=== PATIENT | male | born 1960 | race Caucasian/White ===

== ENCOUNTER 2018-06-29 13:57 | Inpatient (IN) | payer MEDICAID ==
[~2018-06-29] VITALS: Ht 175.3 cm; Wt 89.4 kg
[2018-06-29 15:04] LABS: Hemoglobin 12.1 g/dL (13.5-17.5); Monocytes # (auto) 0.7 uL; Neutrophils # (auto) 7.6 uL; White Blood Cell 9.5 10^3/uL (4.4-10.8)
[2018-06-29 15:06] LABS: Basophils # (auto) 0 uL; Basophils % (auto) 0.4 % (0.0-2.0); Eosinophils # (auto) 0.1 uL; Eosinophils % (auto) 1.5 % (0.0-7.0); Hematocrit 37.9 % (41.0-53.0); Lymphocytes % (auto) 10.6 % (10.0-50.0); Mean Corpuscular Hemoglobin 23.4 pg (28.0-32.0); Mean Corpuscular Hgb Conc. 31.8 g/dL (32.0-36.0); Mean Corpuscular Volume 73.4 fL (80.0-100.0); Monocytes % (auto) 7.6 % (0.0-12.0); Neutrophils % (auto) 79.9 % (37.0-80.0); Platelet Count (auto) 286 10^3/uL (140-450); Red Blood Cells 5.17 10^6/uL (4.5-5.90); Red Cell Distribution Width 18.3 % (11.8-14.3)
[2018-06-29 15:18] LABS: Albumin 2.9 g/dL (3.4-5.0); BUN/Creatinine Ratio 11.5; Calcium 8.3 mg/dL (8.5-10.1); Potassium 3.7 mmol/L (3.5-5.1)
[2018-06-29 15:19] LABS: Bilirubin, Total 0.4 mg/dL (0.2-1.0); Total Protein 7.8 g/dL (6.4-8.2)
[2018-06-29] MEDS ORDERED: FUROSEMIDE 20 MG/2 ML VIAL IV ONE ×2 (18:45→19:00)
[2018-06-29] MEDS ORDERED: HYDROcodone-ACET 10/325MG TAB PO ONE (19:00)
[2018-06-29] MEDS ORDERED: NALBUPHINE HCL 10 MG/1ml INJECTION IV ONE (20:30)
[2018-06-29] MEDS ORDERED: methylPREDNISolone SOD SUCC 125 MG/2 ML VL ONE (20:36)
[2018-06-29] MEDS ORDERED: FAMOTIDINE (10MG/ML) 2ML VL IV ONE (20:36)
[2018-06-29] MEDS ORDERED: diphenhdrAMINE HCL 25 MG CAP PO ONE (20:39)
[2018-06-29] MEDS ORDERED: IODIXANOL 320MG/ML 100ML BTL IV ONE (22:44)
[2018-06-29] MEDS ORDERED: ONDANSETRON HCL 4 MG/2 ML VIAL IV PRN (22:45)
[2018-06-29] MEDS ORDERED: HYDROcodone-ACET 5/325MG TAB PO PRN (22:45)
[2018-06-29] MEDS ORDERED: ACETAMINOPHEN 500 MG TAB PO PRN (22:45)
[2018-06-30] MEDS ORDERED: MEPERIDINE HCL (25 MG/ML) 1ML VIAL IM PRN (01:30)
[2018-06-30] MEDS ORDERED: GABA100C9 PO (02:00)
[2018-06-30] MEDS ORDERED: TAMS1CAP25 PO (02:00)
[2018-06-30 02:15] VITALS: BP 146/98
[2018-06-30] MEDS ORDERED: traMADol HCL 50 MG TAB PO PRN (02:15)
[2018-06-30] MEDS: MEPERIDINE HCL (25 MG/ML) 1ML VIAL IV PRN ×5 (02:37→20:23)
[2018-06-30 05:00] VITALS: BP 120/70
[2018-06-30 06:16] LABS: Basophils # (auto) 0 uL; Eosinophils # (auto) 0 uL; Hematocrit 42.3 % (41.0-53.0); Hemoglobin 12.9 g/dL (13.5-17.5); Lymphocytes # (auto) 0.4 uL; Lymphocytes % (auto) 5.9 % (10.0-50.0); Mean Corpuscular Hemoglobin 23.5 pg (28.0-32.0); Mean Corpuscular Hgb Conc. 30.5 g/dL (32.0-36.0); Mean Corpuscular Volume 77.1 fL (80.0-100.0); Monocytes # (auto) 0.1 uL; Monocytes % (auto) 1.1 % (0.0-12.0); Neutrophils # (auto) 6.3 uL; Nucleated Red Blood Cells % 0.5 %; Platelet Count (auto) 257 10^3/uL (140-450); Red Blood Cells 5.49 10^6/uL (4.5-5.90); Red Cell Distribution Width 18.9 % (11.8-14.3); White Blood Cell 6.7 10^3/uL (4.4-10.8)
[2018-06-30 07:33] LABS: Anion Gap 7 (5-15); BUN/Creatinine Ratio 12.2; Blood Urea Nitrogen 19 mg/dL (7-18); Calcium 8.3 mg/dL (8.5-10.1); Carbon Dioxide 25 mmol/L (21-32); Chloride 106 mmol/L (98-107); GFR African American 59 mL/min; GFR Non-African American 49 mL/min; Glucose 125 mg/dL (74-106); Potassium 3.6 mmol/L (3.5-5.1); Sodium 138 mmol/L (136-145)
[2018-06-30 09:00] VITALS: BP 135/74
[2018-06-30] MEDS ORDERED: cefTRIAXone 1GM/50ML D5W 50 ML IV ONE (11:30)
[2018-06-30] MEDS: ASPirin-EC 81 mg tab PO SCH (11:57)
[2018-06-30] MEDS: FUROSEMIDE 40 MG/4 ML VIAL IV SCH (11:58)
[2018-06-30] MEDS: Ensure Enlive Strawberry 8oz Bottle PO SCH ×2 (11:58→18:00)
[2018-06-30 13:00] VITALS: BP 123/77
[2018-06-30] MEDS: CLINDAMYCIN 300MG IV 50 ML IV SCH ×2 (14:12→21:39)
[2018-06-30] MEDS: TAMSULOSIN HYDROCHLORIDE 0.4 MG CAP PO SCH (18:00)
[2018-06-30 18:13] VITALS: BP 113/80
[2018-06-30 22:00] VITALS: BP 101/56
[2018-07-01] MEDS: MEPERIDINE HCL (25 MG/ML) 1ML VIAL IV PRN ×4 (01:52→20:01)
[2018-07-01 05:00] VITALS: BP 114/74
[2018-07-01] MEDS: CLINDAMYCIN 300MG IV 50 ML IV SCH ×3 (05:31→21:34)
[2018-07-01 07:42] LABS: Potassium 3.6 mmol/L (3.5-5.1)
[2018-07-01 07:49] LABS: Albumin 2.5 g/dL (3.4-5.0); BUN/Creatinine Ratio 16.1; Bilirubin, Total 0.4 mg/dL (0.2-1.0); Calcium 8.2 mg/dL (8.5-10.1); Total Protein 7.2 g/dL (6.4-8.2)
[2018-07-01 08:00] VITALS: BP 126/84
[2018-07-01] MEDS: Ensure Enlive Strawberry 8oz Bottle PO SCH ×3 (08:00→17:36)
[2018-07-01 08:51] VITALS: BP 126/84
[2018-07-01 08:58] LABS: Basophils # (auto) 0 uL; Basophils % (auto) 0.3 % (0.0-2.0); Eosinophils # (auto) 0 uL; Eosinophils % (auto) 0.3 % (0.0-7.0); Hemoglobin 11.6 g/dL (13.5-17.5); Monocytes # (auto) 0.6 uL
[2018-07-01 09:00] LABS: Hematocrit 36.4 % (41.0-53.0); Lymphocytes % (auto) 12.1 % (10.0-50.0); Mean Corpuscular Hemoglobin 23.5 pg (28.0-32.0); Mean Corpuscular Hgb Conc. 31.7 g/dL (32.0-36.0); Monocytes % (auto) 7.1 % (0.0-12.0); Neutrophils # (auto) 6.8 uL; Neutrophils % (auto) 80.2 % (37.0-80.0); Platelet Count (auto) 273 10^3/uL (140-450); Red Blood Cells 4.92 10^6/uL (4.5-5.90); Red Cell Distribution Width 18.4 % (11.8-14.3); White Blood Cell 8.4 10^3/uL (4.4-10.8)
[2018-07-01] MEDS: FUROSEMIDE 40 MG/4 ML VIAL IV SCH (09:54)
[2018-07-01] MEDS: cefTRIAXone 1GM/50ML D5W 50 ML IV SCH (09:55)
[2018-07-01] MEDS: ASPirin-EC 81 mg tab PO SCH (09:55)
[2018-07-01 12:36] VITALS: BP 123/72
[2018-07-01 15:46] LABS: Alcohol, Urine < 3.0 mg/dL (0-5); Amphetamine Screen, Urine NEGATIVE (NEGATIVE); Barbiturate Scree,Urine NEGATIVE (NEGATIVE); Benzodiazephine Screen, Urine NEGATIVE (NEGATIVE); Cannabinoid Screen, Urine NEGATIVE (NEGATIVE); Cocaine Screen, Urine NEGATIVE (NEGATIVE); Opiate Scree,Urine POSITIVE (NEGATIVE); Phencyclidine Screen, Urine NEGATIVE (NEGATIVE)
[2018-07-01 15:57] LABS: Urine Bacteria NONE SEEN /hpf (None Seen); Urine Blood 2+ /uL (Negative); Urine Hyaline Cast FEW /lpf (0 - 2); Urine Specific Gravity 1.012 (1.001-1.035); Urine WBC 1 /hpf (0 - 3)
[2018-07-01 16:51] VITALS: BP 120/80
[2018-07-01] MEDS: TAMSULOSIN HYDROCHLORIDE 0.4 MG CAP PO SCH (17:36)
[2018-07-01 22:00] VITALS: BP 122/83
[2018-07-02] MEDS: MEPERIDINE HCL (25 MG/ML) 1ML VIAL IV PRN ×3 (01:04→10:02)
[2018-07-02 05:00] VITALS: BP 111/68
[2018-07-02] MEDS: CLINDAMYCIN 300MG IV 50 ML IV SCH (05:49)
[2018-07-02 07:00] LABS: % Iron Saturation 11.6 % (20-55); Calcium 8.1 mg/dL (8.5-10.1); Potassium 3.4 mmol/L (3.5-5.1)
[2018-07-02 07:01] LABS: Basophils # (auto) 0 uL; Eosinophils # (auto) 0.1 uL; Eosinophils % (auto) 1.8 % (0.0-7.0); Lymphocytes # (auto) 0.8 uL; Monocytes # (auto) 0.5 uL
[2018-07-02 07:04] LABS: BUN/Creatinine Ratio 16.3
[2018-07-02 07:05] LABS: Basophils % (auto) 0.7 % (0.0-2.0); Hematocrit 37.4 % (41.0-53.0); Mean Corpuscular Hemoglobin 23.5 pg (28.0-32.0); Mean Corpuscular Volume 73.3 fL (80.0-100.0); Monocytes % (auto) 7.2 % (0.0-12.0); Neutrophils # (auto) 5.5 uL; Neutrophils % (auto) 78.3 % (37.0-80.0); Nucleated Red Blood Cells % 0.1 %; Platelet Count (auto) 284 10^3/uL (140-450); Red Cell Distribution Width 18.3 % (11.8-14.3); White Blood Cell 7.1 10^3/uL (4.4-10.8)
[2018-07-02] MEDS ORDERED: GASTROGRAFIN 30 ML SOL ONE (07:13)
[2018-07-02 08:00] VITALS: BP 110/73
[2018-07-02] MEDS: Ensure Enlive Strawberry 8oz Bottle PO SCH ×2 (08:00→12:00)
[2018-07-02 09:00] VITALS: BP 110/73
[2018-07-02 09:27] LABS: Folate (Folic Acid) 11.03 ng/mL (5.38-24)
[2018-07-02] MEDS ORDERED: POTASSIUM EFFERVESENT TAB 25 MEQ PO ONE (09:45)
[2018-07-02] MEDS: ASPirin-EC 81 mg tab PO SCH (09:51)
[2018-07-02] MEDS: FUROSEMIDE 40 MG/4 ML VIAL IV SCH (09:52)
[2018-07-02] MEDS: cefTRIAXone 1GM/50ML D5W 50 ML IV SCH (09:52)
[2018-07-02] MEDS ORDERED: FERROUS SULFATE 325 MG TAB PO SCH (11:00)
[2018-07-02 13:15] VITALS: BP 137/79
== END 2018-07-02 14:09 | disposition left against medical advice (07) | DRG 194 ==
LOC: ER 13:57 → TELE 22:42 → TELE-WESTW 23:55
PROVIDERS: ADMIT Nurse Practitioner Family; ATTEND Nurse Practitioner Family
DX: I50.43 Acute on chronic combined systolic (congestive) and diastolic (congestive) heart failure (principal); E44.0 Moderate protein-calorie malnutrition; I38 Endocarditis, valve unspecified; N18.3 Chronic kidney disease, stage 3 (moderate); F41.9 Anxiety disorder, unspecified; E04.1 Nontoxic single thyroid nodule; R59.1 Generalized enlarged lymph nodes; J98.11 Atelectasis; M25.552 Pain in left hip; Z53.21 Procedure and treatment not carried out due to patient leaving prior to being seen by health care provider; Z80.1 Family history of malignant neoplasm of trachea, bronchus and lung; Z86.14 Personal history of Methicillin resistant Staphylococcus aureus infection; Z88.5 Allergy status to narcotic agent; Z68.29 Body mass index [BMI] 29.0-29.9, adult
CPT/HCPCS: 36415; 71045; 71275; 73700; 74176; 76536; 80048; 80053; 80307; 81001; 82607; 82728; 82746; 83010; 83540; 83550; 83615; 83735; 83880; 84484; 85025; 85379; 86880; 87077; 87081; 87186; 87205; 93005; 93306; 93971; 96374; 96375; G0378; J0696; J3490; Q9967